=== PATIENT | female | born 1945 | race Caucasian/White ===

== ENCOUNTER 2017-03-29 08:11 | Emergency (ER) | payer OTHER ==
[~2017-03-29] VITALS: Ht 160 cm; Wt 93.4 kg
[~2017-03-29 08:11] MED LIST: AVALIDE 150-12.1 TA1 PO; LEVSIN0.125 MG PO; PROTONIX; PROTONIX40 MG PO; SYNTHROID88 MCG PO; TRAMADOL HCL-AP1 TAB PO; VASOTEC5 MG; ZANTAC300 MG PO; ZOFRAN4 MG PO
[2017-03-29] MEDS ORDERED: NORFLEX100MG PO (12:15)
[2017-03-29] MEDS ORDERED: DICLOFENAC SODI50 MG PO (12:15)
== END 2017-03-29 12:33 | disposition home or self-care (01) ==
LOC: ER 08:11
DX: M79.605 Pain in left leg (principal); M54.5 Low back pain

== ENCOUNTER 2018-11-08 08:11 | Outpatient (CLI) | payer OTHER ==
[~2018-11-08 08:11] MED LIST changes: +DICLOFENAC SODI50 MG PO; +NORFLEX100MG PO
== END 2018-11-08 15:00 | disposition home or self-care (01) ==
LOC: EKG 08:11
DX: I11.0 Hypertensive heart disease with heart failure (principal)

== ENCOUNTER 2019-01-30 08:53 | Outpatient (CLI) | payer OTHER | END 2019-01-30 08:56 | disposition home or self-care (01) | LOC: NUCLEAR 08:53 | DX: J98.51 Mediastinitis (principal) | CPT/HCPCS: 78815; A9552 ==

== ENCOUNTER 2023-11-28 13:24 | Emergency (ER) | payer OTHER ==
[~2023-11-28] VITALS: Ht 160 cm; Wt 99.8 kg
[2023-11-28] MEDS ORDERED: COZAAR100 MG (13:30)
[2023-11-28] MEDS ORDERED: KETOROLAC TROMETHAMINE 60 MG VIAL IM ONE (16:45)
[2023-11-28] MEDS ORDERED: ORPHENADRINE CITRATE 30 MG/ML AMPUL IM ONE (16:45)
== END 2023-11-28 17:01 | disposition home or self-care (01) ==
LOC: ER 13:25
DX: M62.838 Other muscle spasm (principal); M79.602 Pain in left arm; M79.89 Other specified soft tissue disorders; I10 Essential (primary) hypertension; E03.8 Other specified hypothyroidism; Z91.018 Allergy to other foods
CPT/HCPCS: 96372; 99282; J1885; J2360